=== PATIENT | male | born 1950 | race Caucasian/White ===

== ENCOUNTER 2017-04-07 09:16 | Outpatient (CLI) | payer MEDICARE, BC ==
[2017-04-07 15:21] VITALS: BP 182/92
--- NOTE | 2017-04-08 13:08 | XRAY Report ---
There was no imaging performed for this exam. Procedure notes and results available in the EMR. BLAIR
--- NOTE | 2017-04-11 07:34 | CARDIAC PROCEDURE NOTE ---
DATE OF SERVICE: 04/07/2017 00:00:00 PRIMARY CARE PHYSICIAN: Brody Renteria MD PROCEDURE: Treadmill cardiac stress test. PROCEDURE SYMPTOMS: Dyspnea on exertion. CARDIAC RISK FACTORS INCLUDE: Age, hypertension, and hyperlipidemia. PREVIOUS CARDIAC PROCEDURES: No previous cardiac procedures. Carvedilol was held for 1 day prior to exercise. CLINICAL HISTORY: A 66-year-old male without known coronary artery disease. INITIAL RESTING VITAL SIGNS: Blood pressure 182/92, heart rate 56, height 70 inches, weight 187 pounds, BMI 26.8. PROCEDURE AND FINDINGS: Patient identity and date verified, consent signed. The patient performed treadmill exercise using a Juan Jose protocol, completing 10 minutes, 03 seconds, and completing an estimated workload of 12.9 metabolic equivalents. Maximal blood pressure was 210/110 with a heart rate of 167 beats per minute or 108% of maximum predicted heart rate for age. The patient stopped because greater than 100% predicted heart rate was achieved, and he was getting breathless. At peak exercise, the patient rated the maximal Desire scale for rating perceived exertion as 18/20. The resting ECG demonstrated normal sinus rhythm with rare PVC abnormality. Maximum ST segment depression was less than 0.5 mm and upsloping. Ectopy of unifocal PVCs increased with exercise and in recovery including trigeminy and bigeminy. FINAL IMPRESSIONS 1. Negative stress electrocardiogram for ischemia by electrocardiographic criteria. 2. Negative stress test clinically for angina. 3. Frequent unifocal PVCs. Patient identifies sense of palpitations with this ectopy. 4. [place] [employer] functional class 1 fitness. JOB #: [id number] EXT JOB #:[id number] [facility]
== END 2017-04-07 09:17 | disposition home or self-care (01) ==
LOC: DI 09:16
PROVIDERS: ATTEND Internal Medicine
DX: R06.00 Dyspnea, unspecified (principal); I49.3 Ventricular premature depolarization
CPT/HCPCS: 93017